=== PATIENT | male | born 1990 | race Caucasian/White ===

== ENCOUNTER 2019-11-28 15:14 | Emergency (ER) | payer OTHER ==
[~2019-11-28] VITALS: Ht 180.3 cm; Wt 108.3 kg
--- NOTE | 2019-11-28 16:19 | NUR ---
PT AMBULATED TO ROOM FROM LOBBY. PT RESTING ON GURNEY, NO COMPLAINTS AT THIS TIME.
--- NOTE | 2019-11-28 16:25 | NUR ---
PT HAS CALL LIGHT WITHIN REACH, CONTINUOUS PULSE OX MONITORING ON.
--- NOTE | 2019-11-28 17:22 | NUR ---
BREAK RN: PT RESTING IN ROOM. VS STABLE. CALL LIGHT IN PLACE. NO ACUTE DISTRESS NOTED. WILL CONTINUE TO MONITOR WHILE PRIMARY RN IS ON BREAK.
--- NOTE | 2019-11-28 17:31 | NUR ---
REPORT GIVEN TO BETTIE KRAMER
--- NOTE | 2019-11-28 18:15 | NUR ---
RAPID FLU CANCELLED PER [facility].
[2019-11-28 18:22] VITALS: BP 121/72
== END 2019-11-28 18:22 | disposition home or self-care (01) ==
LOC: ED 17:27
DX: B34.9 Viral infection, unspecified (principal); Z20.828 Contact with and (suspected) exposure to other viral communicable diseases; R11.10 Vomiting, unspecified; F17.200 Nicotine dependence, unspecified, uncomplicated
CPT/HCPCS: 36415; 71045; 87635; 99284